=== PATIENT | male | born 1970 | race Caucasian/White ===

== ENCOUNTER 2017-09-05 13:07 | Emergency (ER) | payer OTHER ==
[~2017-09-05] VITALS: Ht 165.1 cm; Wt 104.3 kg
[2017-09-05 13:33] VITALS: BP 135/81
[2017-09-05] MEDS ORDERED: CALC500C17 PO (13:36)
--- NOTE | 2017-09-05 13:41 | NUR ---
Patient ambulated to bed 07.
--- NOTE | 2017-09-05 13:42 | NUR ---
47/M BIB FOR CHEST PAIN X4DAYS WITH VOMITING. PT STS FEELS LIKE ACID REFLUX. SKIN IS PINK/WARM/DRY; AAOX4 WITH EVEN AND STEADY GAIT; LUNGS CLEAR BL; HR EVEN AND REGULAR; PATIENT STATES PAIN OF 10/10 AT THIS TIME; PATIENT POSITIONED FOR COMFORT; HOB ELEVATED; BEDRAILS UP X2; BED DOWN. ER MD MADE AWARE OF PT STATUS.
--- NOTE | 2017-09-05 14:24 | NUR ---
Dr. Bhatti evaluating patient at bedside.
[2017-09-05] MEDS ORDERED: DICYCLOMINE HCL LIQUID 20 MG, ALUMINUM HYD/MAG/SIMETHICONE 30 ML, LIDOCAINE VISCOUS 2% ... PO ONE ×3 (14:30)
--- NOTE | 2017-09-05 14:42 | NUR ---
Note undone in EDM - 09/05/17 at 1458 by [email or web address] 47/M BIB FOR CHEST PAIN X4DAYS WITH VOMITING. PT STS FEELS LIKE ACID REFLUX. SKIN IS PINK/WARM/DRY; AAOX4 WITH EVEN AND STEADY GAIT; LUNGS CLEAR BL; HR EVEN AND REGULAR; PATIENT STATES PAIN OF 10/10 AT THIS TIME; PATIENT POSITIONED FOR COMFORT; HOB ELEVATED; BEDRAILS UP X2; BED DOWN. ER MADE AWARE OF PT STATUS.
[2017-09-05 15:10] VITALS: BP 129/85
--- NOTE | 2017-09-05 15:10 | NUR ---
Patient discharged with v/s stable. Written and verbal after care instructions given and explained. Patient alert, oriented and verbalized understanding of instructions. Ambulatory with steady gait. All questions addressed prior to discharge. ID band removed. Patient advised to follow up with PMD. Rx of PRILOSEC & MOTRIN given. Patient educated on indication of medication including possible reaction and side effects. Opportunity to ask questions provided and answered.
== END 2017-09-05 15:10 | disposition home or self-care (01) ==
LOC: EDSEX 13:07 → MED 13:07
DX: K21.9 Gastro-esophageal reflux disease without esophagitis (principal); Z90.89 Acquired absence of other organs
CPT/HCPCS: 81002; 93005; 99283

== ENCOUNTER 2018-06-22 17:23 | Emergency (ER) | payer OTHER ==
[~2018-06-22] VITALS: Ht 165.1 cm; Wt 104.3 kg
[~2018-06-22 17:23] MED LIST: CALC500C17 PO
[2018-06-22 17:31] VITALS: BP 145/80
--- NOTE | 2018-06-22 19:10 | NUR ---
CALLED IN AND OUT OF LOBBY X 3 WITHOUT ANSWER. PATIENT LEFT WITHOUT BEING SEEN BY DR. CARRERA. NO FURTHER CARE PROVIDED FOR PATIENT.
== END 2018-06-22 19:10 | disposition left against medical advice (07) ==
LOC: MED 17:23
DX: M54.5 Low back pain (principal); Z53.21 Procedure and treatment not carried out due to patient leaving prior to being seen by health care provider

== ENCOUNTER 2021-04-08 16:59 | Emergency (ER) | payer OTHER ==
[~2021-04-08] VITALS: Ht 165.1 cm; Wt 104.3 kg
[2021-04-08 17:00] VITALS: BP 146/87
--- NOTE | 2021-04-08 17:07 | NUR ---
Patient ambulated to bed 5. RN evaluating the patient at bedside.
--- NOTE | 2021-04-08 17:09 | NUR ---
AJ Elkins is evaluating the patient at bedside.
[2021-04-08] MEDS ORDERED: HYDROcodone/APAP 5/325 MG 1 TAB TAB PO ONE (17:15)
--- NOTE | 2021-04-08 17:17 | NUR ---
X-Ray at bedside.
--- NOTE | 2021-04-08 17:20 | NUR ---
Note siva in EDM - 04/08/21 at 1846 by OREN 51/M presents to ED with c/o left shoulder pain. Patient states he was working outside and fell off a 7 foot ladder and landed on his left shoulder. Patient unable to move left arm, shoulder shows signs of deformity. Patient describes it as a constant 10/10 pain, site is tender to touch. Pulses and sensation are equal bilaterally, cap refill less than 2 seconds.
--- NOTE | 2021-04-08 17:20 | NUR ---
51/M presents to ED with c/o right shoulder pain. Patient states he was working outside and fell off a 7 foot ladder and landed on his right shoulder. Patient unable to move right arm, shoulder shows signs of deformity. Patient describes it as a constant 10/10 pain, site is tender to touch. Pulses and sensation are equal bilaterally, cap refill less than 2 seconds.
--- NOTE | 2021-04-08 17:28 | NUR ---
Dr. Bhatti is evaluating the patient at bedside.
[2021-04-08] MEDS ORDERED: MORPHINE SULFATE 4 MG/ML SYR IVP ONE (17:35)
[2021-04-08] MEDS ORDERED: PROPOFOL 200 MG/20 ML VIAL IV ONE (17:35)
--- NOTE | 2021-04-08 18:01 | NUR ---
Dr. Bhatti, RT, and RN are at bedside for reduction of right shoulder dislocation with moderate sedation.
--- NOTE | 2021-04-08 18:04 | NUR ---
See moderate sedation sheet for details.
--- NOTE | 2021-04-08 18:04 | NUR ---
outside plant technician at bedside for post-reduction x-ray.
--- NOTE | 2021-04-08 18:16 | NUR ---
PT PLACED IN RIGHT SHOULDER SLING
--- NOTE | 2021-04-08 18:55 | NUR ---
Patient discharged with v/s stable. Written and verbal after care instructions given and explained. Patient verbalized understanding. Ambulatory with steady gait. All questions addressed prior to discharge. Advised to follow up with PMD.
[2021-04-08 18:58] VITALS: BP 130/89
--- NOTE | 2021-04-10 02:30 | NUR ---
LATE ENTRY- DIPRIVAN IVP DISCONTINUED AT 1811
== END 2021-04-08 18:55 | disposition home or self-care (01) ==
LOC: MED 16:59
DX: S43.004A Unspecified dislocation of right shoulder joint, initial encounter (principal); S00.81XA Abrasion of other part of head, initial encounter; Z79.899 Other long term (current) drug therapy; W11.XXXA Fall on and from ladder, initial encounter; Y93.89 Activity, other specified; Y92.89 Other specified places as the place of occurrence of the external cause; Y99.8 Other external cause status
CPT/HCPCS: 23650; 73020; 73030; 96374; 99152; 99285; J2270; J2704